=== PATIENT | female | born 1935 | race Caucasian/White ===

== ENCOUNTER 2021-05-15 10:24 | Outpatient (CLI) | payer MEDICARE | END 2021-05-15 10:25 | disposition home or self-care (01) | LOC: CSHMAMMO 10:24 | PROVIDERS: ATTEND Obstetrics & Gynecology | DX: Z12.31 Encounter for screening mammogram for malignant neoplasm of breast (principal) | CPT/HCPCS: 77063; 77067 ==

== ENCOUNTER 2021-08-03 08:27 | Outpatient (CLI) | payer MEDICARE, OTHER | END 2021-08-03 08:28 | disposition home or self-care (01) | LOC: CSHCT 08:27 | PROVIDERS: ATTEND Family Medicine | DX: M54.42 Lumbago with sciatica, left side (principal); G89.29 Other chronic pain; M47.816 Spondylosis without myelopathy or radiculopathy, lumbar region | CPT/HCPCS: 72131 ==

== ENCOUNTER 2022-05-21 09:55 | Outpatient (CLI) | payer MEDICARE, OTHER | END 2022-05-21 09:56 | disposition home or self-care (01) | LOC: CSHMAMMO 09:55 | PROVIDERS: ATTEND Obstetrics & Gynecology | DX: Z12.31 Encounter for screening mammogram for malignant neoplasm of breast (principal) | CPT/HCPCS: 77063; 77067 ==